=== PATIENT | male | born 1960 | race Two or more races ===

== ENCOUNTER 2019-08-06 01:16 | Emergency (ER) | payer OTHER ==
[~2019-08-06] VITALS: Ht 167.6 cm; Wt 70.8 kg
[2019-08-06] MEDS ORDERED: GLUMETZA500 MG (01:26)
[2019-08-06] MEDS ORDERED: LIPITOR20 MG (01:26)
[2019-08-06] MEDS ORDERED: COZAAR25 MG (01:26)
[2019-08-06] MEDS ORDERED: CEFUROXIME500 MG PO (05:34)
[2019-08-06] MEDS ORDERED: PYRIDIUM DS200 MG PO (05:34)
== END 2019-08-06 05:47 | disposition home or self-care (01) ==
LOC: ER 01:16
DX: N30.81 Other cystitis with hematuria (principal)